=== PATIENT | male | born 1995 | race African-American/Black ===

== ENCOUNTER 2016-04-15 03:45 | Emergency (ER) | payer OTHER ==
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
--- NOTE | 2016-04-15 05:30 | REPUSA ---
CLINICAL HISTORY: Neck pain. TECHNIQUE: Multiple axial images were obtained through the cervical spine. Images were also reconstru cted in coronal and sagittal planes. The study was performed without IV contrast. COMMENTS: There is no fracture or spondylolisthesis visualized. The paraspinal soft tissues are unremarkable. T here are no lytic or blastic lesions. Straightening of cervical lordosis is seen, suggesting muscular spasm. There is evidence of minimal m ultilevel disk disease, demonstrated by minimal osteophytosis and endplate sclerosis. No significant disk herniation is noted at any level. Canal and foramina remain patent. IMPRESSION: 1. No fracture or spondylolisthesis. 2. Straightening of cervical lordosis is seen, suggesting muscular spasm. 3. Minimal multilevel spondylosis. Thank you for your kind referral of this patient.
[2016-04-15] MEDS ORDERED: ACETAMINOPHEN TAB 650MG DOSE (2X325MG) As Ordered ONE (06:07)
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
== END 2016-04-15 06:32 | disposition home or self-care (01) ==
LOC: M ED 03:45
DX: S00.93XA Contusion of unspecified part of head, initial encounter (principal); S06.0X1A Concussion with loss of consciousness of 30 minutes or less, initial encounter; Y04.8XXA Assault by other bodily force, initial encounter; Y92.89 Other specified places as the place of occurrence of the external cause; Y93.89 Activity, other specified; Y99.8 Other external cause status; Z87.891 Personal history of nicotine dependence
CPT/HCPCS: 70450; 70486; 72125; 99284; G0480

== ENCOUNTER 2016-04-25 09:11 | Emergency (ER) | payer OTHER ==
[2016-04-25] MEDS ORDERED: KETOROLAC 30 MG/ML VIAL (J1885) As Ordered ONE (09:44)
[2016-04-25] MEDS ORDERED: METOCLOPRAMIDE INJ 10MG/2ML VIAL (J2765) As Ordered ONE (09:44)
[2016-04-25] MEDS ORDERED: ONDANSETRON 4 MG ORAL DISINTEGRATING TAB (S0181) As Ordered ONE (10:50)
--- NOTE | 2016-04-25 11:13 | EDDOCDS ---
Physician Documentation [facility] Name: Marquis Guidry Age: 20 yrs Sex: Male : 1995 Arrival Date: 04/25/2016 Time: 09:11 Bed I3 / M3 Private MD: MARLEEN Aguila Disposition: 04/25/16 10:44 Discharged to Home/Self Care. Impression: Headache, Nausea with vomiting, unspecified. - Condition is Stable. - Discharge Instructions: General Headache Without Cause, Nausea and Vomiting. - Prescriptions for ZOFRAN ODT 4 mg Oral - dissolve 1 tablet by ORAL route 3-4 times daily As needed do not chew, do not swallow whole; 20 tablet. - Medication Reconciliation, Local Pharmacy Hours form. - Follow up: Emergency Department; When: As needed; Reason: Worsening of conditions. Follow up: MARLEEN Aguila; When: 2 - 3 days; Reason: Wound/Symptom Recheck, Recheck today's complaints, Continuance of care. - Problem is new. - Symptoms have improved. Historical: - Allergies: No known drug Allergies; - Home Meds: 1. ibuprofen 800 mg Oral tab 1 tab 3 times per day 2. meclizine 25 mg oral tab once daily - PMHx: Bronchitis; concussion; - PSHx: none; - Social history: Smoking status: Patient states former smoker of tobacco. No barriers to communication noted, The patient speaks fluent Tajik. - Family history: Not pertinent. - : The pt / caregiver states he / she is not on anticoagulants. Home medication list is obtained from the patient, [employer] import data. - Exposure Risk Screening:: None identified. Vital Signs: 04/25 09:13 BP 129 / 71; Pulse 72; Resp 18; Temp 97.4(O); Pulse Ox 100% on R/A; Weight 90.72 kg / lr2 200 lbs (R); Height 5 ft. 11 in. (180.34 cm) (R); Pain 4/10; 10:54 BP 141 / 56; Pulse 87; Resp 18; Temp 97.4(O); Pulse Ox 97% on R/A; Pain 4/10; jml1 09:13 Body Mass Index 27.89 (90.72 kg, 180.34 cm) lr2 MDM: 09:41 IV Saline Lock ordered. dt4 09:41 NS 0.9% 1000 ml IV at bolus once ordered. dt4 09:41 ketorolac 30 mg IVP once ordered. dt4 09:41 Metoclopramide 20 mg IV at 80 mg/hr once over 15 mins ordered. dt4 10:06 Financial registration complete. mm15 10:46 [facility] Payment Agreement was scanned into [employer] and attached to record. mm15 10:47 Ondansetron ODT Oral Disintegrating Tablet 4 mg PO once ordered. dt4 Administered Medications: 09:59 Drug: NS 0.9% 1000 ml [sodium chloride 0.9 % intravenous solution] Route: IV; Rate: hs1 bolus; Site: left antecubital; 09:59 Drug: ketorolac 30 mg [ketorolac 30 mg/mL (1 mL) injection solution (1 mL)] Route: IVP; hs1 Site: left antecubital; 09:59 Drug: Metoclopramide 20 mg [metoclopramide 5 mg/mL injection solution] Route: IV; Rate: hs1 80 mg/hr; Infused Over: 15 mins; Site: left antecubital; 10:52 Drug: Ondansetron ODT 4 mg [ondansetron 4 mg disintegrating tablet (1 tabs)] Route: PO; 4 Signatures: Yany Wilson RN RN kcs McGrath, Marlynn mm15 Jayda Marie RN RN mk4 Meri George PA-C PA-C dt4 Tammi Crum RN hs1 The chart was reviewed and I authenticate all verbal orders and agree with the evaluation and treatment provided.Attachments: 10:46 [facility] Payment Agreement mm15 MTDD
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
--- NOTE | 2016-04-27 12:13 | EDDOCDS ---
Physician Documentation [facility] Name: Marquis Guidry Age: 20 yrs Sex: Male : 1995 Arrival Date: 04/25/2016 Time: 09:11 Bed I3 / M3 Private MD: MARLEEN Aguila Disposition: 04/25/16 10:44 Discharged to Home/Self Care. Impression: Headache, Nausea with vomiting, unspecified. - Condition is Stable. - Discharge Instructions: General Headache Without Cause, Nausea and Vomiting. - Prescriptions for ZOFRAN ODT 4 mg Oral - dissolve 1 tablet by ORAL route 3-4 times daily As needed do not chew, do not swallow whole; 20 tablet. - Medication Reconciliation, Local Pharmacy Hours form. - Follow up: Emergency Department; When: As needed; Reason: Worsening of conditions. Follow up: MARLEEN Aguila; When: 2 - 3 days; Reason: Wound/Symptom Recheck, Recheck today's complaints, Continuance of care. - Problem is new. - Symptoms have improved. Historical: - Allergies: No known drug Allergies; - Home Meds: 1. ibuprofen 800 mg Oral tab 1 tab 3 times per day 2. meclizine 25 mg oral tab once daily - PMHx: Bronchitis; concussion; - PSHx: none; - Social history: Smoking status: Patient states former smoker of tobacco. No barriers to communication noted, The patient speaks fluent Georgian. - Family history: Not pertinent. - : The pt / caregiver states he / she is not on anticoagulants. Home medication list is obtained from the patient, [employer] import data. - Exposure Risk Screening:: None identified. Vital Signs: 04/25 09:13 BP 129 / 71; Pulse 72; Resp 18; Temp 97.4(O); Pulse Ox 100% on R/A; Weight 90.72 kg / lr2 200 lbs (R); Height 5 ft. 11 in. (180.34 cm) (R); Pain 4/10; 10:54 BP 141 / 56; Pulse 87; Resp 18; Temp 97.4(O); Pulse Ox 97% on R/A; Pain 4/10; jml1 09:13 Body Mass Index 27.89 (90.72 kg, 180.34 cm) lr2 MDM: 09:41 IV Saline Lock ordered. dt4 09:41 NS 0.9% 1000 ml IV at bolus once ordered. dt4 09:41 ketorolac 30 mg IVP once ordered. dt4 09:41 Metoclopramide 20 mg IV at 80 mg/hr once over 15 mins ordered. dt4 10:06 Financial registration complete. mm15 10:46 [facility] Payment Agreement was scanned into [employer] and attached to record. mm15 10:47 Ondansetron ODT Oral Disintegrating Tablet 4 mg PO once ordered. dt4 13:35 T-Sheet-- Draft Copy was scanned into [employer] and attached to record. gb Administered Medications: Discontinued: NS 0.9% 1000 ml IV at bolus once 09:59 Drug: NS 0.9% 1000 ml [sodium chloride 0.9 % intravenous solution] Route: IV; Rate: hs1 bolus; Site: left antecubital; 11:13 Follow up: IV Status: Completed infusion; Infusion discontinued mk4 09:59 Drug: ketorolac 30 mg [ketorolac 30 mg/mL (1 mL) injection solution (1 mL)] Route: IVP; hs1 Site: left antecubital; 11:12 Follow up: Response: Pain is decreased mk4 09:59 Drug: Metoclopramide 20 mg [metoclopramide 5 mg/mL injection solution] Route: IV; Rate: hs1 80 mg/hr; Infused Over: 15 mins; Site: left antecubital; 11:13 Follow up: Response: Nausea is resolved mk4 10:52 Drug: Ondansetron ODT 4 mg [ondansetron 4 mg disintegrating tablet (1 tabs)] Route: PO; mk4 11:13 Follow up: Response: Nausea is resolved mk4 Signatures: Yany Wilson RN RN kcs Anny Ruano, Trav Reg Wild Christianson mm15 Jayda Marie RN RN mk4 Meri George PA-C PA-C dt4 Tammi Crum RN hs1 The chart was reviewed and I authenticate all verbal orders and agree with the evaluation and treatment provided.Attachments: 10:46 [facility] Payment Agreement mm15 13:35 T-Sheet-- Draft Copy gb Chart Complete MTDD
--- NOTE | 2016-04-27 12:13 | EDDOCDS ---
Physician Documentation [facility] Name: Marquis Guidry Age: 20 yrs Sex: Male : 1995 Arrival Date: 04/25/2016 Time: 09:11 Bed I3 / M3 Private MD: MARLEEN Aguila Disposition: 04/25/16 10:44 Discharged to Home/Self Care. Impression: Headache, Nausea with vomiting, unspecified. - Condition is Stable. - Discharge Instructions: General Headache Without Cause, Nausea and Vomiting. - Prescriptions for ZOFRAN ODT 4 mg Oral - dissolve 1 tablet by ORAL route 3-4 times daily As needed do not chew, do not swallow whole; 20 tablet. - Medication Reconciliation, Local Pharmacy Hours form. - Follow up: Emergency Department; When: As needed; Reason: Worsening of conditions. Follow up: MARLEEN Aguila; When: 2 - 3 days; Reason: Wound/Symptom Recheck, Recheck today's complaints, Continuance of care. - Problem is new. - Symptoms have improved. Historical: - Allergies: No known drug Allergies; - Home Meds: 1. ibuprofen 800 mg Oral tab 1 tab 3 times per day 2. meclizine 25 mg oral tab once daily - PMHx: Bronchitis; concussion; - PSHx: none; - Social history: Smoking status: Patient states former smoker of tobacco. No barriers to communication noted, The patient speaks fluent Frisian. - Family history: Not pertinent. - : The pt / caregiver states he / she is not on anticoagulants. Home medication list is obtained from the patient, [employer] import data. - Exposure Risk Screening:: None identified. Vital Signs: 04/25 09:13 BP 129 / 71; Pulse 72; Resp 18; Temp 97.4(O); Pulse Ox 100% on R/A; Weight 90.72 kg / lr2 200 lbs (R); Height 5 ft. 11 in. (180.34 cm) (R); Pain 4/10; 10:54 BP 141 / 56; Pulse 87; Resp 18; Temp 97.4(O); Pulse Ox 97% on R/A; Pain 4/10; jml1 09:13 Body Mass Index 27.89 (90.72 kg, 180.34 cm) lr2 MDM: 09:41 IV Saline Lock ordered. dt4 09:41 NS 0.9% 1000 ml IV at bolus once ordered. dt4 09:41 ketorolac 30 mg IVP once ordered. dt4 09:41 Metoclopramide 20 mg IV at 80 mg/hr once over 15 mins ordered. dt4 10:06 Financial registration complete. mm15 10:46 [facility] Payment Agreement was scanned into [employer] and attached to record. mm15 10:47 Ondansetron ODT Oral Disintegrating Tablet 4 mg PO once ordered. dt4 13:35 T-Sheet-- Draft Copy was scanned into [employer] and attached to record. gb Administered Medications: Discontinued: NS 0.9% 1000 ml IV at bolus once 09:59 Drug: NS 0.9% 1000 ml [sodium chloride 0.9 % intravenous solution] Route: IV; Rate: hs1 bolus; Site: left antecubital; 11:13 Follow up: IV Status: Completed infusion; Infusion discontinued mk4 09:59 Drug: ketorolac 30 mg [ketorolac 30 mg/mL (1 mL) injection solution (1 mL)] Route: IVP; hs1 Site: left antecubital; 11:12 Follow up: Response: Pain is decreased mk4 09:59 Drug: Metoclopramide 20 mg [metoclopramide 5 mg/mL injection solution] Route: IV; Rate: hs1 80 mg/hr; Infused Over: 15 mins; Site: left antecubital; 11:13 Follow up: Response: Nausea is resolved mk4 10:52 Drug: Ondansetron ODT 4 mg [ondansetron 4 mg disintegrating tablet (1 tabs)] Route: PO; mk4 11:13 Follow up: Response: Nausea is resolved mk4 Signatures: Yany Wilson RN RN kcs Anny Ruano, Trav Reg Wild Christianson mm15 Jayda Marie RN RN mk4 Meri George PA-C PA-C dt4 Tammi Crum RN hs1 The chart was reviewed and I authenticate all verbal orders and agree with the evaluation and treatment provided.Attachments: 10:46 [facility] Payment Agreement mm15 13:35 T-Sheet-- Draft Copy gb Chart Complete MTDD
== END 2016-04-25 11:12 | disposition home or self-care (01) ==
LOC: M ED 09:11
DX: R51 Headache (principal); R11.2 Nausea with vomiting, unspecified; Z87.828 Personal history of other (healed) physical injury and trauma; Z79.899 Other long term (current) drug therapy; Z79.1 Long term (current) use of non-steroidal anti-inflammatories (NSAID)
CPT/HCPCS: 96361; 96374; 96375; 99283; J1885; J2765

== ENCOUNTER 2017-03-12 16:20 | Emergency (ER) | payer OTHER ==
[2017-03-12] MEDS: ASPIRIN 81 MG CHEW TABLET PO (17:45)
[2017-03-12 18:04] LABS: BASO % 0.4 % (0.0-1.0); EOS # 0.4 10^3/uL (0.0-0.50); EOS % 5.6 % (0.0-3.0); HEMOGLOBIN 12.6 g/dl (14.0-18.0); IMMATURE GRANULOCYTE % 0.1 % (0-0); LYMPH # 3.1 10^3/uL (1.5-6.5); MEAN CORPUSCULAR HEMOGLOBIN 26.6 pg (27.0-33.0); MEAN CORPUSCULAR HGB CONC 33.2 g/dl (32.0-36.5); MEAN CORPUSCULAR VOLUME 80.3 fl (80.0-96.0); MONO # 0.8 10^3/uL (0.0-0.8); MONO % 10.2 % (0.0-5.0); NEUTROPHILS # 3.3 10^3/uL (1.8-7.7); NEUTROPHILS % 43.7 % (36.0-66.0); PLATELET COUNT, AUTOMATED 186 10^3/uL (150-450); RED BLOOD COUNT 4.73 10^6/uL (4.30-6.10); RED CELL DISTRIBUTION WIDTH 12.6 % (11.5-14.5); WHITE BLOOD COUNT 7.7 10^3/uL (4.0-10.0)
[2017-03-12 18:15] LABS: INR 1.06; PROTHROMBIN TIME 13.9 SECONDS (12.4-14.5)
[2017-03-12 18:30] LABS: ALBUMIN 3.8 GM/DL (3.2-5.2); ALBUMIN/GLOBULIN RATIO 1.12 (1.00-1.93); ALT/SGPT 23 U/L (12-78); ANION GAP 7 MEQ/L (8-16); AST/SGOT 19 U/L (7-37); BILIRUBIN,DIRECT 0.1 MG/DL (0.0-0.2); BILIRUBIN,TOTAL 0.5 MG/DL (0.2-1.0); BLOOD UREA NITROGEN 27 MG/DL (7-18); CALCIUM LEVEL 8.4 MG/DL (8.5-10.1); CARBON DIOXIDE LEVEL 26 MEQ/L (21-32); CHLORIDE LEVEL 106 MEQ/L (98-107); CPK CREATINE PHOSPHOKINASE 213 U/L (39-308); CREATININE FOR GFR 1.13 MG/DL (0.70-1.30); GLOMERULAR FILTRATION RATE > 60.0 (>60); GLUCOSE, FASTING 88 MG/DL (70-105); LIPASE 137 U/L (73-393); POTASSIUM SERUM 3.9 MEQ/L (3.5-5.1); SODIUM LEVEL 139 MEQ/L (136-145); TOTAL PROTEIN 7.2 GM/DL (6.4-8.2); TROPONIN I < 0.02 NG/ML (< 0.10)
[2017-03-12 18:32] LABS: ALKALINE PHOSPHATASE 43 U/L (45-117); MB/CK RELATIVE INDEX 0.46 (< OR =4)
[2017-03-12] MEDS: IBUPROFEN 600 MG TAB PO (18:52)
== END 2017-03-12 19:05 | disposition home or self-care (01) ==
LOC: M ED 16:20
DX: M94.0 Chondrocostal junction syndrome [Tietze] (principal); R09.1 Pleurisy
CPT/HCPCS: 71101

== ENCOUNTER → 2017-10-28 | Outpatient (CLI) | payer OTHER | LOC: M LRY 17:04 | DX: S99.921A Unspecified injury of right foot, initial encounter (principal); Y92.89 Other specified places as the place of occurrence of the external cause; Y93.89 Activity, other specified; X58.XXXA Exposure to other specified factors, initial encounter; Y99.8 Other external cause status | CPT/HCPCS: 73630 ==